=== PATIENT | male | born 1990 | race Caucasian/White ===

== ENCOUNTER 2021-12-25 13:30 | Outpatient (RCR) | payer MEDICAID, SELFPAY ==
--- NOTE | 2021-09-21 15:34 | HP.PTEVAL ---
Patient's Visit Information BILLIE GOMEZ is a 30 year old M referred to Physical Therapy by SONNY PATTEN with a diagnosis of Primary OA involving multiple joints, hypermobility. Date of Evaluation: 09/21/21 Physical Therapist: Mayra Sotomayor - Visit Plan Frequency: 2x /Week Duration: 4 Weeks Plan: Begin with strengthening in pool per physician script. Consider lengthening time in pool or moving to land per pt tolerance and progress. 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 Was feeling N&T and burning sensation in limbs, but no one could explain what was going on. Got to the points where he was in a wheelchair, but was diagnosed 6 months after that with hypothyroidism and hypermobility of joints after seeing several doctors. Experiences muscle twitching in his arms occasionally. Is also being treated for fibromyalgia symptoms. Hypothyroidism is now well managed by medication. Pt is not currently working. Joint pain wakes him up at night and feels very stiff. Pt has full leg braces that he wears 3-4 days a week, especially when he knows he is going to be on his feet a lot. Stairs and extended walking distance is painful, but doable. Reports joints pop and click a lot and sometimes will give out without warning. At worst, describes pain at 10/10, but can be touch and go. Mostly feels the pain knees and below. Describes pain as dull. - Pain B lower legs Pain Intensity (Out of 10): 4 Pain Intensity Range: 4, 10 - Objective Hypermobility of joints, especially elbows hyperextend. Posture: unremarkable. TRUNK ROM: flexion minimally limited, otherwise WFL Pain with all movements. With standing R hip flexion, pt feels (and can hear) a popping in his low back. UE AROM: Full, painful with movement, especially at elbows. UE MMT: 5/5 except resisted wrist extension 3+/5. LE MMT: R&L hip flexion: 4/5, R hip abduction 4/5, L hip abduction 3+/5, R&L hip extension 3+/5. LE STRENGTH (dynamometer): L HS-17.7 lbs, L Quad-12.4 lbs, R HS- 35.6 lbs, R quad-30.9 lbs. GAIT: Pt ambulates with slowed gait speed and decreased alessandra. Increased lateral displacement rather than torso rotation. Popping/clicking at knees and elbows with most movement - Balance/Special Test Scores Lower Extremity Functional Score: 33 - Goals Goal 1:: Pt will demonstrate increased LE muscle strength as indicated by dynamometer testing >10 lbs knee F/E. Goal Time Frame: 4-6 Weeks Goal 2:: Pt will be I with HEP Goal Time Frame: 2-4 Weeks Goal 3:: Pt to decrease disability to <20% on LEFS. Goal 4:: Pt to report decreased joint pain at rest to <3/10. - Rehabilitation Potential Physical Therapy Diagnosis: Pt presents with s/s consistent with OA and hypermobility involving multiple joints resulting in decreased overall stability and strength throughout body, affecting his ability to complete ADLs and recreational/work activities. Rehabilitation Potential: Good - Anticipated Interventions Patient/Client Instruction: Educate patient on: Condition, Plan of Care Therapeutic Exercise to Include: Strength training, Endurance training, In an aquatic setting For the Purpose of:: To decrease pain, To improve muscle performance and motor function, To assume or resume ADL's Thank you for the opportunity to evaluate your patient. For Medicare and Medicare HMO plans, please review the plan of care and approve it. It will need to be FAXED BACK to us at [phone] for Medicare purposes. For Medicare only, by signing this I certify the plan of care. Please let me know if there are questions or concerns regarding this plan of care. Physician Signature: Date:
--- NOTE | 2021-12-06 12:14 | HP.PTREVAL ---
SONNY PATTEN, It has been my pleasure to treat BILLIE GOMEZ over the last 9 visits for Primary OA involving multiple joints, hypermobility. Please see the progress note below for an update on the physical therapy plan of care! Subjective: Pt. reports overall doing better, mostly in LEs. Pt. reports being 30% better overall. He reports not sleeping well due to pain and reports of insomnia, worse if he rolls on his side. Pt. ended up having some family issues out of state. He still wears his TROM Objective/Function: RLE: knee: ext 25.6#, flexion 17.3#; hip: flexion 10.1#, abd 8.3#, ext 13.5#. LLE: knee: ext: 20.1#, flexion 16.3#; hip: flexion 13.4#, abd 10.8#, ext 16.2#. ROM: Joint motion is hypermobile throughout. Tight HS, tight hip flexors. GAIT: Pt. ambulates with decreased step length guarded posture. Slightly flexed. Pt. reports increased B knee and hip pain with walking. He has slow, methodical pattern. STAIRS: completes with BHR and reciprocal pattern. Pt. reports increased pain with ascending and descending. He presents with improved BLE strength, but is still limited. I would like to add in core/hip/UB strengthening as well. I talked to him about progressing a walking routine at home. Pt. consents. Plan Plan: I want to resume aquatic therapy. Focus on BLE strengthening, core strengthening, add in UB strengthening as well. Promote progressive cardio with him as well. Balance/Gait/Functional tests - Balance/Special Test Scores Lower Extremity Functional Score: 24 Goals Goal 1:: Pt will demonstrate increased LE muscle strength as indicated by dynamometer testing >10 lbs knee F/E. Goal Time Frame: 4-6 Weeks Goal 2:: Pt will be I with HEP Goal Time Frame: 2-4 Weeks Goal 3:: Pt to decrease disability to <20% on LEFS. Goal 4:: Pt to report decreased joint pain at rest to <3/10. Anticipated Interventions Patient/Client Instruction: Educate patient on: Condition, Plan of Care Therapeutic Exercise to Include: Strength training, Endurance training, In an aquatic setting For the Purpose of:: To decrease pain, To improve muscle performance and motor function, To assume or resume ADL's Please do not hesitate to contact me at [phone] by phone or if you have questions or concerns regarding this new plan of care! Sincerely, PINEDA TubbsT
--- NOTE | 2022-02-26 13:38 | HP.PT.NRP ---
BILLIE GOMEZ was seen in my office for initial evaluation on 09/21/21. The following Plan of Care was established for this patient: Initial Frequency: 2x /Week Initial Duration: 4 Weeks Patient/Client Instruction: Educate patient on: Condition, Plan of Care Therapeutic Exercise to Include: Strength training, Endurance training, In an aquatic setting For the Purpose of:: To decrease pain, To improve muscle performance and motor function, To assume or resume ADL's This patient was last seen in our office 12/25/21. Pertinent comments regarding their Physical therapy will appear below: Pt seen 12 visits of POC and was 30% better at last check. POC was to continue but she did not schedule or attend any further visits. at this point, it has been over two months and i will discontinue due to nonattendance. At this point I will be discontinuing this patient from physical therapy. I would be happy to see this patient again in the future if found appropriate by the physician. Thank you! Gabriel Rich, DPT, OCS, CSCS Balance/Gait/Functional tests - Balance/Special Test Scores Lower Extremity Functional Score: 24
== END 2021-12-25 19:00 | disposition home or self-care (01) ==
LOC: PT 13:30
DX: M15.9 Polyosteoarthritis, unspecified (principal); M24.9 Joint derangement, unspecified
CPT/HCPCS: 97113; 97162; 97164